=== PATIENT | male | born 1995 | race Two or more races ===

== ENCOUNTER 2025-01-22 16:46 | Emergency (ER) | payer OTHER ==
[~2025-01-22] VITALS: Ht 182.9 cm; Wt 127.0 kg
[2025-01-22] MEDS ORDERED: BENZONATATE 100 MG CAPSULE PO STA (18:03)
[2025-01-22 19:15] LABS: BASO % 0.3 % (0.1-1.2); EOS # 0.33 (0.04-0.54); EOS % 3.8 % (0.7-7.0); HEMATOCRIT 42.1 % (40.1-51.0); HEMOGLOBIN 14.4 g/dL (13.7-17.5); LYMPH # 2.01 (1.18-3.74); LYMPH % 23.1 % (19.3-53.1); MEAN CORPUSCULAR HEMOGLOBIN 28.2 pg (25.6-32.2); MONO # 0.77 (0.24-0.82); MONO % 8.8 % (4.7-12.5); NEUT # 5.55 (1.56-6.13); NEUT % 63.8 % (34.0-71.1); PLATELET COUNT 229 K/uL (163-369); RED CELL DISTRIBUTION WIDTH 12.3 % (11.6-14.4)
[2025-01-22 19:44] LABS: COVID-19 AG POSITIVE (NEGATIVE)
[2025-01-22] MEDS ORDERED: TUSNEL LIQUID178 ML PO (19:49)
[2025-01-22] MEDS ORDERED: PAXLOVID 300/11 EACH PO ×2 (19:49→19:50)
[2025-01-22 19:51] LABS: ALBUMIN 3.6 gm/dL (3.4-5.0); BILIRUBIN TOTAL 0.32 mg/dL (0.3-1.2); CALCIUM 8.5 mg/dL (8.5-10.1); GFR 88.97; GLOBULINA 3.4 G/DL (2.4-3.5); POTASSIUM 3.97 mEq/L (3.5-5.1)
[2025-01-22 19:57] LABS: INFLUENZA A AG NEGATIVE (NEGATIVE); INFLUENZA B AG NEGATIVE (NEGATIVE)
== END 2025-01-22 20:23 | disposition home or self-care (01) ==
LOC: ER 17:39
PROVIDERS: General Practice
DX: U07.1 COVID-19 (principal); J45.909 Unspecified asthma, uncomplicated